=== PATIENT | male | born 1990 | race Caucasian/White ===

== ENCOUNTER 2024-09-04 11:10 | Emergency (ER) | payer OTHER | END 2024-09-04 13:01 | disposition home or self-care (01) | LOC: DL.ED 11:10 | DX: S96.812A Strain of other specified muscles and tendons at ankle and foot level, left foot, initial encounter (principal); X50.9XXA Other and unspecified overexertion or strenuous movements or postures, initial encounter; Y93.02 Activity, running | CPT/HCPCS: 29505; 73590-LT; 99283; 99283-25 ==